=== PATIENT | female | born 1980 | race Caucasian/White ===

== ENCOUNTER → 2020-08-02 13:01 | Outpatient (BNVA) | payer OTHER, SELFPAY | PROVIDERS: Family Provider Family Medicine; PCP Family Medicine; Visit Provider Specialist | DX: G62.9 Polyneuropathy, unspecified (principal); R23.2 Flushing; G43.109 Migraine with aura, not intractable, without status migrainosus; Z87.891 Personal history of nicotine dependence | CPT/HCPCS: 99212 ==

== ENCOUNTER 2020-12-06 17:06 | Outpatient (CLI) | payer OTHER, SELFPAY ==
--- NOTE | 2020-12-06 | MR_ITS ---
WS: [id number] MRI CERVICAL SPINE NONCONTRAST HISTORY: NECK PAIN COMPARISON: 05/08/2018 Technique: Multiplanar, multisequence noncontrast imaging of the cervical spine. Normal posterior cervical alignment. Mild disc space narrowing and bulging at several levels. Again noted is the thin linear increased signal on the T2 sequences in the cervical cord at C5-C7 con sistent with a small syrinx which has not significantly changed or progressed. Craniocervical junction, C1 and C2 relationship, odontoid process and soft tissues are normal. C2-C3: Mild osteophytosis. Very shallow central disc protrusion without cord contact. C3-C4: Mild disc bulging. Moderate RIGHT foraminal stenosis due to disc osteophyte. Similar to the pr ior study. Displacement of the nerve root posteriorly. No stenosis centrally or on the LEFT. C4-C5: Mild annular disc bulging slightly asymmetric to the RIGHT. Very shallow central disc protrusi on without cord contact. Mild osteophytic ridging with mild RIGHT foraminal stenosis due to disc oste ophyte disease. Similar to the prior study. C5-C6: Mild osteophytic ridging with a moderate-sized central disc protrusion contacting the ventral cord. There is associated annular fissure. No significant foraminal stenosis. C6-C7: Tiny central disc protrusion. C7-T1: Tiny central disc protrusion. Near contact on the cord. Paraspinal soft tissue are normal. MR/MR cervical spin wo con* [id number] IMPRESSION: 1. No significant progression of degenerative disc disease and osteophytosis s laura 05/08/2018. 2. Moderate size central disc protrusion at C5-6 with mild contact on the vent ral cord and associated annular fissure. 3. Moderate RIGHT foraminal stenosis due to disc osteophyte at C3-4 is similar to the prior study. 4. Mild RIGHT foraminal stenosis at C4-5. 5. Small central cord syrinx is stable.
== END 2020-12-06 17:07 | disposition home or self-care (01) ==
PROVIDERS: PCP Family Medicine; Visit Provider Family Medicine
DX: M54.12 Radiculopathy, cervical region (principal); M48.02 Spinal stenosis, cervical region; M25.78 Osteophyte, vertebrae; M50.222 Other cervical disc displacement at C5-C6 level
CPT/HCPCS: 72141

== ENCOUNTER → 2020-12-14 08:10 | Outpatient (BNVA) | payer OTHER, SELFPAY | PROVIDERS: PCP Family Medicine; Referring Provider Family Medicine; Visit Provider Orthopaedic Surgery | DX: M48.02 Spinal stenosis, cervical region (principal) | CPT/HCPCS: 72050 ==

== ENCOUNTER → 2020-12-29 09:09 | Outpatient (BNVA) | payer OTHER, SELFPAY | PROVIDERS: PCP Family Medicine; Referring Provider Orthopaedic Surgery; Visit Provider Anesthesiology Pain Medicine | DX: M47.22 Other spondylosis with radiculopathy, cervical region (principal); M47.812 Spondylosis without myelopathy or radiculopathy, cervical region; M54.9 Dorsalgia, unspecified | CPT/HCPCS: 99205 ==

== ENCOUNTER → 2021-01-05 08:39 | Outpatient (BNVA) | payer OTHER, SELFPAY | PROVIDERS: PCP Family Medicine; Visit Provider Anesthesiology Pain Medicine | DX: M79.18 Myalgia, other site (principal); M47.22 Other spondylosis with radiculopathy, cervical region; M47.812 Spondylosis without myelopathy or radiculopathy, cervical region; Z79.891 Long term (current) use of opiate analgesic | CPT/HCPCS: 20553; 99214; J1030; J3490 ==

== ENCOUNTER → 2021-01-25 13:19 | Outpatient (BNVA) | payer OTHER, SELFPAY | PROVIDERS: PCP Family Medicine; Visit Provider Specialist | DX: M47.812 Spondylosis without myelopathy or radiculopathy, cervical region (principal); G43.109 Migraine with aura, not intractable, without status migrainosus; Z87.891 Personal history of nicotine dependence | CPT/HCPCS: 99213 ==

== ENCOUNTER 2021-02-02 10:21 | Outpatient (RCR) | payer OTHER, SELFPAY | END 2021-02-05 23:59 | disposition home or self-care (01) | LOC: SPT 10:21 | PROVIDERS: PCP Family Medicine; Referring Provider Orthopaedic Surgery; Visit Provider Orthopaedic Surgery | DX: M47.892 Other spondylosis, cervical region (principal) | CPT/HCPCS: 97110; 97162 ==

== ENCOUNTER 2021-02-06 06:00 | Outpatient (RCR) | payer OTHER, SELFPAY | END 2021-03-07 23:59 | disposition home or self-care (01) | LOC: SPT 06:00 | PROVIDERS: PCP Family Medicine; Referring Provider Orthopaedic Surgery; Visit Provider Orthopaedic Surgery | DX: M47.892 Other spondylosis, cervical region (principal) | CPT/HCPCS: 97110 ==

== ENCOUNTER 2021-03-08 06:00 | Outpatient (RCR) | payer OTHER, SELFPAY | END 2021-04-07 23:59 | disposition home or self-care (01) | LOC: SPT 06:00 | PROVIDERS: PCP Family Medicine; Referring Provider Orthopaedic Surgery; Visit Provider Orthopaedic Surgery | DX: M47.892 Other spondylosis, cervical region (principal) | CPT/HCPCS: 97110 ==

== ENCOUNTER → 2021-04-23 14:21 | Outpatient (BNVA) | payer OTHER, SELFPAY | PROVIDERS: PCP Family Medicine; Visit Provider Specialist | DX: G43.109 Migraine with aura, not intractable, without status migrainosus (principal); Z87.891 Personal history of nicotine dependence | CPT/HCPCS: 99212 ==

== ENCOUNTER → 2022-01-31 12:22 | Outpatient (BNVA) | payer MEDICAID, SELFPAY | PROVIDERS: PCP Family Medicine; Visit Provider Clinical Nurse Specialist Adult Health | DX: R07.9 Chest pain, unspecified (principal) | CPT/HCPCS: 84439; 84443; 84481; 84484 ==

== ENCOUNTER 2022-05-22 07:59 | Emergency (ER) | payer BC, MEDICAID, SELFPAY ==
[2022-05-22 08:03] VITALS: BP 164/109; PULSE 84; RESP 16; TEMP 36.9; O2SAT 99; BMI 27.5
--- NOTE | 2022-05-22 08:08 | ECG_ITS ---
[facility] Test Date: 2022-05-22 Pat Name: Inés Cruz Department: Room: Gender: Female Customer Order Clerk: : 1980 Requested By: Johny Brambila Order Number: [id number] Summer MD: Dickson Alvarez M.D. Measurements Intervals [place] Rate: 82 P: 43 IA: 149 QRS: 17 QRSD: 84 T: 32 QT: 362 QTc: 425 Interpretive Statements SINUS RHYTHM No previous ECG available for comparison Electronically Signed On 05-23-2022 10:36:45 CDT by Dickson Alvarez M.D. [id number] f
[2022-05-22 08:25] VITALS: BP 162/111; BP 172/100; BP 172/101; PULSE 81; PULSE 88; PULSE 90
[2022-05-22 08:30] VITALS: BP 172/100; PULSE 75; RESP 13; O2SAT 98
--- NOTE | 2022-05-22 08:30 | W.ED.DIZZY ---
HPI - Dizziness General: Chief Complaint: Dizziness Stated Complaint: dizzy, heart racing Time Seen by Provider: 05/22/22 08:01 Source: patient Mode of arrival: ambulatory Limitations: no limitations History of Present Illness: HPI Narrative: 42-year-old female presents emergency room complaining of elevated blood pressure and dizziness some palpitations intermittently feels lightheaded and fatigued's been going over the last few days. States she called her doctor was unable to get and advised her to come to the emergency room. She is not currently on any medications she has not had any chest pain no shortness of breath or diaphoresis associated with this no history of any arrhythmias. MD elicited complaint: dizziness and lightheadedness Severity: mild Exacerbating factors: nothing Relieving factors: nothing Associated symptoms: Reports palpitations; Denies change in hearing, chest pain, chills, cough, diaphoresis, ear discharge, ear pressure, fevers/chills, headache(s), malaise, nausea, nasal congestion, rash, short of breath, syncope, tinnitus, vomiting or weakness Associated neuro symptoms: Deny confusion, difficulty speaking, dysphagia, diplopia, extremity weakness, facial numbness, facial weakness, gait changes, numbness in extremities or visual changes Review of Systems Const: Denies: fever(s), chills, fatigue, malaise or diaphoresis ENMT: Denies: throat pain, ear discharge, change in hearing, tinnitus or nasal congestion Card: Reports: palpitations; Denies: chest pain or syncope Resp: Denies: dyspnea, productive cough or non-productive cough GI: Denies: abdominal pain, nausea, vomiting or dysphagia : Denies: flank pain, difficulty voiding, dysuria, urinary frequency or urinary urgency Skin/Breast: Denies: rash or pruritus Neuro: Denies: headache(s), numbness in extremities or confusion PFSH ED PFSH: Family History Other Diabetes Hypertension Social History Smoking and tobacco status: former smoker Alcohol intake: never History of recent travel: No Physical Exam Const: GENERAL APPEARANCE: cooperative and comfortable ORIENTATION/CONSCIOUSNESS: Yes awake, Yes oriented to person, Yes oriented to place and Yes oriented to time HENMT: COMMON NORMALS: normocephalic, atraumatic, hearing grossly normal bilaterally, external ears normal, EAC's normal, TM's normal bilaterally, Normal nasal mucous membranes and turbinates present, moist oral mucous membranes and oropharynx normal HEAD & SCALP: normocephalic and atraumatic NOSE: Normal nasal mucous membranes and turbinates present EXTERNAL EAR: Yes external ears normal EXTERNAL AUDITORY CANAL: EAC's normal TYMPANIC MEMBRANE: TM's normal bilaterally Eye: COMMON NORMALS: Equal, round and reactive pupils present, EOMs intact bilaterally, conjunctivae normal and no scleral icterus CONJUNCTIVA: Yes conjunctivae normal PUPIL: Yes Equal, round and reactive pupils present Resp: COMMON NORMALS: normal respiratory effort, No retractions, No use of accessory muscles and clear to auscultation bilaterally AUSCULTATION: clear to auscultation bilaterally Cardio: COMMON NORMALS: regular rate, regular rhythm and No murmurs present (Cardio) RATE: regular rate RHYTHM: regular rhythm GI: COMMON NORMALS: Soft to palpation and No hepatosplenomegaly present AUSCULTATION: Yes normoactive bowel sounds PALPATION: Yes Soft to palpation, No Tenderness to palpation present (GI), No Guarding due to palpation present (GI) and Yes No hepatosplenomegaly present Extremity: COMMON NORMALS: normal to inspection, capillary refill normal, no clubbing, cyanosis or edema, no calf tenderness and no pedal edema Neuro: SENSORIUM/ORIENTATION: Yes oriented to person, Yes oriented to place and Yes oriented to time Skin: COMMON NORMALS: no rashes or lesions noted GENERAL SKIN EXAM: no rashes or lesions noted Course Vital Signs: Vital signs: Vital Signs Temperature 98.4 F 05/22/22 08:03 Pulse Rate 80 05/22/22 09:46 Respiratory Rate 18 05/22/22 09:46 Blood Pressure 128/90 05/22/22 09:46 Pulse Oximetry 98 05/22/22 09:46 Oxygen Delivery Or thod 05/22/22 08:30 MDM - Dizziness Medical Decision Making DC hydrochlorothiazide start Toprol-XL 0.5 nightly. She is given 25 short acting here and pretty significant reaction to it and had lowering of her heart rate into the 60s. Follow-up with primary care doc within the next week. Medical Records I reviewed the patient's medical records. Lab Data I reviewed the patient's lab results. : 05/22/22 08:20 05/22/22 08:20 Laboratory Results WBC 8.5 10^3/uL (4.0-10.0) 05/22/22 08:20 RBC 5.01 10^6/uL (4.1-5.3) 05/22/22 08:20 Hgb 15.3 g/dL (11.5-15.3) 05/22/22 08:20 Hct 46.2 % (37.0-47.0) 05/22/22 08:20 MCV 92.2 fl (81-99) 05/22/22 08:20 MCH 30.5 pg (28.0-34.0) 05/22/22 08:20 MCHC 33.1 g/dL (30.0-36.0) 05/22/22 08:20 RDW 12.7 % (12.1-15.1) 05/22/22 08:20 Plt Count 304 10^3/cmm (130-400) 05/22/22 08:20 MPV 10.0 fL (7.4-10.4) 05/22/22 08:20 Neut % (Auto) 66.0 % 05/22/22 08:20 Lymph % (Auto) 26.1 % 05/22/22 08:20 [place] % (Auto) 4.4 % 05/22/22 08:20 Eos % (Auto) 2.8 % 05/22/22 08:20 Baso % (Auto) 0.5 % 05/22/22 08:20 Neut # (Auto) 5.60 10^3/uL (1.8-7.7) 05/22/22 08:20 Lymph # (Auto) 2.2 10^3/uL (0.8-4.8) 05/22/22 08:20 [place] # (Auto) 0.4 10^3/uL (0.2-0.9) 05/22/22 08:20 Eos # (Auto) 0.2 10^3/uL (0.0-0.8) 05/22/22 08:20 Baso # (Auto) 0.0 10^3/uL (0.0-0.1) 05/22/22 08:20 Nucleated RBC % (auto) 0 % 05/22/22 08:20 Nucleated RBCs # 0.0 /100WBC 05/22/22 08:20 Sodium 138 mmol/L (136-145) 05/22/22 08:20 Potassium 3.5 mmol/L (3.5-5.1) 05/22/22 08:20 Chloride 101 mmol/L (98-107) 05/22/22 08:20 Carbon Dioxide 23 mmol/L (22-29) 05/22/22 08:20 Anion Gap 17.5 (5-19) 05/22/22 08:20 BUN 13 mg/dL (6-20) 05/22/22 08:20 Creatinine 0.7 mg/dL (0.5-0.9) 05/22/22 08:20 GFR Calculation 91.8 mL/min (90-130) 05/22/22 08:20 Glucose 108 mg/dL (65-115) 05/22/22 08:20 Calculated Osmolality 287 mOsm/kg (285-295) 05/22/22 08:20 Calcium 10.1 mg/dL (8.5-10.5) 05/22/22 08:20 Discharge Plan Discharge Patient Disposition: Home Clinical Impression: HTN (hypertension), Heart palpitations Condition: Stable Prescriptions: New Toprol XL 25 mg tablet extended release 24 hr 12.5 mg PO DAILY Qty: 15 0RF No Action lisinopril 20 mg tablet 20 mg PO QAM Aspir-81 81 mg Tablet,Delayed Release (Dr/Ec) 81 mg PO QAM Zinc Magnesium Aspartate 10-150-3.83 mg Capsule 1 cap PO QAM hydrochlorothiazide 12.5 mg tablet 12.5 mg PO QAM Discharge Orders: Discharge ED (Routine); Ordered 05/22/22 Ordered By: Johny Bobby Referrals: Samson Rios DO [Primary Care Provider] - Patient Instructions: Opioid Safety, Pain Management Activity Restrictions/Additional Instructions: Follow-up with your primary care doctor within the next week. Coding Level of Care Code ED Liquor Tester for Karolina Fwd Exam Comprehensive
[2022-05-22 08:31] LABS: Basophils % 0.5 %; Eosinophils # 0.2 10^3/uL (0.0-0.8); Eosinophils % 2.8 %; Hematocrit 46.2 % (37.0-47.0); Hemoglobin 15.3 g/dL (11.5-15.3); Lymphocytes # 2.2 10^3/uL (0.8-4.8); Lymphocytes % 26.1 %; Mean Corpuscular HGB Conc 33.1 g/dL (30.0-36.0); Mean Corpuscular Hemoglobin 30.5 pg (28.0-34.0); Mean Corpuscular Volume 92.2 fl (81-99); Monocytes # 0.4 10^3/uL (0.2-0.9); Monocytes % 4.4 %; Nucleated Red Blood Cells % 0 %; Platelet Count 304 10^3/cmm (130-400); Red Blood Count 5.01 10^6/uL (4.1-5.3); Red Cell Distribution Width 12.7 % (12.1-15.1); White Blood Count 8.5 10^3/uL (4.0-10.0)
[2022-05-22] MEDS: metoprolol tartrate 25 mg Tablet PO (08:35)
--- NOTE | 2022-05-22 08:41 | PC.PHAR ---
pt states she takes care of her own medications-rx filled 02/15/22 90d/s for lisinopril 20mg daily and lisinopril 30mg daily filled 03/22/22 90d/s pt states takes the 20mg daily-
[2022-05-22 08:56] LABS: Anion Gap 17.5 (5-19); Blood Urea Nitrogen 13 mg/dL (6-20); Calcium 10.1 mg/dL (8.5-10.5); Carbon Dioxide 23 mmol/L (22-29); Chloride 101 mmol/L (98-107); Glomerular Filtration Rate 91.8 mL/min (90-130); Glucose 108 mg/dL (65-115); Osmolality Calculated 287 mOsm/kg (285-295); Potassium 3.5 mmol/L (3.5-5.1); Sodium 138 mmol/L (136-145)
[2022-05-22 09:46] VITALS: BP 128/90; PULSE 80; RESP 18; O2SAT 98
== END 2022-05-22 09:47 | disposition home or self-care (01) ==
PROVIDERS: Emergency Provider Family Medicine; PCP Family Medicine
DX: I10 Essential (primary) hypertension (principal); R00.2 Palpitations; Z79.82 Long term (current) use of aspirin; Z87.891 Personal history of nicotine dependence
CPT/HCPCS: 80048; 85025; 93005; 99284

== ENCOUNTER → 2022-08-19 10:11 | Outpatient (BNVA) | payer BC, MEDICAID, SELFPAY | PROVIDERS: PCP Family Medicine; Visit Provider Clinical Nurse Specialist Adult Health | DX: B34.9 Viral infection, unspecified (principal); J10.1 Influenza due to other identified influenza virus with other respiratory manifestations | CPT/HCPCS: 87400; 87426 ==

== ENCOUNTER 2022-09-12 21:21 | Emergency (ER) | payer BC, MEDICAID, SELFPAY ==
[2022-09-12 21:26] VITALS: BP 168/115; PULSE 67; RESP 16; TEMP 37.1; O2SAT 100
--- NOTE | 2022-09-12 21:49 | CTR_ITS ---
PROCEDURE INFORMATION: Exam: CT Abdomen And Pelvis With Contrast Exam date and time: 09/12/2022 10:18 PM Age: 42 years old Clinical indication: Abdominal pain; Localized; Left lower quadrant (llq); Prior surgery; Surgery type: Gb. Appy. Bowel resection. Csection. Patient HX: C/O severe llq pain. History of diverticulitis. ; Additional info: Abd pain TECHNIQUE: Imaging protocol: Computed tomography of the abdomen and pelvis with contrast. Radiation optimization: All CT scans at this facility use at least one of these dose optimization techniques: automated exposure control; mA and/or kV adjustment per patient size (includes targeted exams where dose is matched to clinical indication); or iterative reconstruction. Contrast material: OMNI 350; Contrast volume: 100 ml; Contrast route: INTRAVENOUS (IV); COMPARISON: CT abdomen pelvis w con* [id number] 04/27/2019 9:39 AM RADIATION DOSE METRICS: Total DLP (mGy-cm): 443.69 FINDINGS: Liver: Normal. No mass. Gallbladder and bile ducts: The gallbladder is surgically absent. Pancreas: Normal. No ductal dilation. Spleen: Normal. No splenomegaly. Adrenal glands: Normal. No mass. Kidneys and ureters: 2 mm nonobstructing right intrarenal calculus. Kidneys are otherwise normal. Stomach and bowel: Numerous diverticula in the sigmoid colon with accompanying mild wall thickening. However no pericolonic edema or fluid. No bowel obstruction or ileus. However there is moderate fluid within the postoperative right colon. Small bowel is normal. The stomach is moderately distended with food and gas. . Appendix: No evidence of appendicitis. Intraperitoneal space: Unremarkable. No free air. No significant fluid collection. Vasculature: Unremarkable. No abdominal aortic aneurysm. Lymph nodes: Unremarkable. No enlarged lymph nodes. Urinary bladder: The urinary bladder is distended up to 12 cm but without wall thickening or stones. Reproductive: Follicles are noted in the right ovary. The left ovary is not as clearly seen. Bones/joints: Unremarkable. No acute fracture. Soft tissues: 3.4 cm laxity of the abdominal wall at the umbilicus. No bowel entrapment. CT/CT abdomen pelvis w con* [id number] IMPRESSION: 1. Sigmoid colon wall thickening with accompanying diverticula. However no surrounding inflammation. The pattern suggests chronic diverticulitis 2. Chronic postoperative right colon. 3. Other chronic and incidental findings as described
--- NOTE | 2022-09-12 21:50 | W.ED.ABDPA2 ---
HPI - Abdominal Pain General: Chief Complaint: Abdominal Pain Stated Complaint: ABD Pain Time Seen by Provider: 09/12/22 21:23 Source: patient Mode of arrival: ambulatory Limitations: no limitations History of Present Illness: 42-year-old female states she is history of diverticulitis in the past where she had a colectomy in 2014 states been having abdominal pain over the last 2 days with a getting much worse in the last 2 hours states is in the left lower quadrant she denies any fever she does have nausea denies any vomiting she denies any worsening improving factors. Associated Symptoms: Reports nausea; Denies chills, dysuria and fever(s) Review of Systems Const: Denies: fever(s), chills, body aches or change in appetite Eyes: Denies: blurry vision or eye discomfort ENMT: Denies: throat pain or dental pain Card: Denies: chest pain Resp: Denies: dyspnea GI: Reports: abdominal pain and nausea : Denies: dysuria Musc: Denies: neck pain or back pain Skin/Breast: Denies: rash Neuro: Denies: headache(s) Psych: Denies: depression Oswald/Lymph: Denies: easy bruising All/Imm: Denies: urticaria PFSH ED PFSH: Medical History Atypical migraine Hypertension Surgical History History of appendectomy History of back surgery x2 History of delivery History of cholecystectomy Family History Other Diabetes Hypertension Social History Smoking and tobacco status: former smoker Alcohol intake: never History of recent travel: No Physical Exam Const: COMMON NORMALS: no acute distress, patient oriented x3 and healthy appearing HENMT: COMMON NORMALS: normocephalic and atraumatic HEAD & SCALP: normocephalic and atraumatic Eye: COMMON NORMALS: Equal, round and reactive pupils present and EOMs intact bilaterally PUPIL: Yes Equal, round and reactive pupils present Neck/C-Spine: COMMON NORMALS: full ROM and supple Chest: COMMONS NORMALS: normal inspection of the chest and normal palpation of entire chest wall Resp: COMMON NORMALS: normal respiratory effort, No retractions, No use of accessory muscles and clear to auscultation bilaterally AUSCULTATION: clear to auscultation bilaterally Cardio: COMMON NORMALS: regular rate, regular rhythm and No murmurs present (Cardio) RATE: regular rate RHYTHM: regular rhythm GI: COMMON NORMALS: Normal to inspection, nondistended, normoactive bowel sounds present, Soft to palpation and no masses PALPATION: Yes Soft to palpation and Yes Tenderness to palpation present (GI) Details: LLQ Extremity: COMMON NORMALS: normal to inspection and full ROM Neuro: COMMON NORMALS: patient oriented x3, moves all extremities and no focal motor deficits Psych: COMMON NORMALS: mental status grossly normal, Normal thought process present and cooperative THOUGHT PROCESS: Normal thought process present Skin: COMMON NORMALS: no rashes or lesions noted and no wounds GENERAL SKIN EXAM: no rashes or lesions noted Course Vital Signs: Vital signs: Vital Signs Temperature 98.8 F 09/12/22 21:26 Pulse Rate 70 09/12/22 22:11 Respiratory Rate 18 09/12/22 22:58 Blood Pressure 158/91 09/12/22 22:11 Pulse Oximetry 99 09/12/22 22:11 Oxygen Delivery Me thod 09/12/22 22:11 MDM - Abdominal Pain Medical Decision Making Patient presents here with abdominal pain CT shows her chronic diverticulitis her white count is normal due to her pain we will start her on Augmentin pain meds get her follow-up with Dr. Goetz. Lab Data 09/12/22 22:02 09/12/22 22:02 Labs/Radiology: Radiology Impressions Abdomen/Pelvis CT 09/12/22 21:49 IMPRESSION: 1. Sigmoid colon wall thickening with accompanying diverticula. However no surrounding inflammation. The pattern suggests chronic diverticulitis 2. Chronic postoperative right colon. 3. Other chronic and incidental findings as described Laboratory Results WBC 8.0 10^3/uL (4.0-10.0) 09/12/22 22:02 RBC 4.97 10^6/uL (4.1-5.3) 09/12/22 22:02 Hgb 15.4 g/dL (11.5-15.3) H 09/12/22 22:02 Hct 46.3 % (37.0-47.0) 09/12/22 22:02 MCV 93.2 fl (81-99) 09/12/22 22:02 MCH 31.0 pg (28.0-34.0) 09/12/22 22:02 MCHC 33.3 g/dL (30.0-36.0) 09/12/22 22:02 RDW 13.2 % (12.1-15.1) 09/12/22 22:02 Plt Count 296 10^3/cmm (130-400) 09/12/22 22:02 MPV 10.1 fL (7.4-10.4) 09/12/22 22:02 Neut % (Auto) 60.8 % 09/12/22 22:02 Lymph % (Auto) 30.6 % 09/12/22 22: [place] % (Auto) 6.5 % 09/12/22 22:02 Eos % (Auto) 1.3 % 09/12/22 22:02 Baso % (Auto) 0.5 % 09/12/22 22:02 Neut # (Auto) 4.85 10^3/uL (1.8-7.7) 09/12/22 22:02 Lymph # (Auto) 2.4 10^3/uL (0.8-4.8) 09/12/22 22:02 [place] # (Auto) 0.5 10^3/uL (0.2-0.9) 09/12/22 22:02 Eos # (Auto) 0.1 10^3/uL (0.0-0.8) 09/12/22 22:02 Baso # (Auto) 0.0 10^3/uL (0.0-0.1) 09/12/22 22:02 Nucleated RBC % (auto) 0 % 09/12/22 22: Nucleated RBCs # 0.0 /100WBC 09/12/22 22:02 Sodium 138 mmol/L (136-145) 09/12/22 22:02 Potassium 4.2 mmol/L (3.5-5.1) 09/12/22 22:02 Chloride 103 mmol/L (98-107) 09/12/22 22:02 Carbon Dioxide 25 mmol/L (22-29) 09/12/22 22:02 Anion Gap 14.2 (5-19) 09/12/22 22:02 BUN 12 mg/dL (6-20) 09/12/22 22:02 Creatinine 0.5 mg/dL (0.5-0.9) 09/12/22 22:02 GFR Calculation 135.3 mL/min (90-130) H 09/12/22 22:02 Glucose 80 mg/dL (65-115) 09/12/22 22:02 Calculated Osmolality 285 mOsm/kg (285-295) 09/12/22 22:02 Calcium 9.8 mg/dL (8.5-10.5) 09/12/22 22:02 Total Bilirubin 0.2 mg/dL (0.15-1.2) 09/12/22 22:02 AST 18 U/L (0-32) 09/12/22 22:02 ALT 15 U/L (0-33) 09/12/22 22:02 Alkaline Phosphatase 61 U/L (35-105) 09/12/22 22:02 Total Protein 8.1 g/dL (6.6-8.7) 09/12/22 22:02 Albumin 5.2 g/dL (3.5-5.2) 09/12/22 22:02 Globulin 2.9 g/dL (1.3-4.6) 09/12/22 22:02 Lipase 37 U/L (13-60) 09/12/22 22:02 HCG, Qual Negative (Negative) 09/12/22 22:02 Urine Color Colorless (Yellow) 09/12/22 22:40 Urine Appearance Clear (CLEAR) 09/12/22 22:40 Urine pH 6.5 (5-7) 09/12/22 22:40 Ur Specific [place] 1.015 (1.005-1.030) 09/12/22 22:40 Urine Protein Neg (Negative) 09/12/22 22:40 Urine Glucose (UA) Norm (Normal) 09/12/22 22:40 Urine Ketones Negative (Negative) 09/12/22 22:40 Urine Blood Neg (Negative) 09/12/22 22:40 Urine Nitrate Negative (Negative) 09/12/22 22:40 Urine Bilirubin Neg (Negative) 09/12/22 22:40 Urine Urobilinogen Norm mg/dL (Negative) 09/12/22 22:40 Ur Leukocyte Esterase Negative (Negative) 09/12/22 22:40 Discharge Plan Discharge Patient Disposition: Home Clinical Impression: Diverticulitis, Abdominal pain Condition: Stable Prescriptions: New hydrocodone-acetaminophen 5-325 mg tablet 1 tab PO Q6H PRN (Reason: pain) Qty: 14 0RF ondansetron 4 mg tablet,disintegrating 4 mg PO Q6H PRN (Reason: nausea and vomiting) Qty: 14 0RF Augmentin 500-125 mg tablet 1 tab PO BID Qty: 14 0RF No Action Toprol XL 25 mg tablet extended release 24 hr 25 mg PO DAILY Qty: 90 1RF lisinopril 20 mg tablet 20 mg PO QAM Qty: 90 1RF Xofluza 40 mg tablet 40 mg PO ONCE Qty: 1 0RF Aspir-81 81 mg Tablet,Delayed Release (Dr/Ec) 81 mg PO QAM Zinc Magnesium Aspartate 10-150-3.83 mg Capsule 1 cap PO QAM Discharge Orders: Discharge ED (Routine); Ordered 09/12/22 Ordered By: Lana Orourke Referrals: Nhan Goetz MD [Physician] - 1-3 days Samson Rios DO [Primary Care Provider] - Discharge Diet: Advance as tolerated Discharge Activity: Resume usual activity Patient Instructions: Abdominal Pain (ED), Opioid Safety Coding Level of Care Code ED Devops Developer for Chg Fwd Exam Comprehensive
[2022-09-12 22:08] VITALS: RESP 16
[2022-09-12] MEDS: ondansetron 2 mg/ML SDV 2 mL 4 MG IVP (22:08)
[2022-09-12] MEDS: sodium chloride 0.9% 1,000 ML 999 ML IV (22:08)
[2022-09-12] MEDS: HYDROmorphone 1 mg/mL INJ 1 mL IVP ×2 (22:08→22:58)
[2022-09-12 22:10] LABS: Basophils % 0.5 %; Eosinophils # 0.1 10^3/uL (0.0-0.8); Eosinophils % 1.3 %; Hematocrit 46.3 % (37.0-47.0); Hemoglobin 15.4 g/dL (11.5-15.3); Lymphocytes # 2.4 10^3/uL (0.8-4.8); Lymphocytes % 30.6 %; Mean Corpuscular HGB Conc 33.3 g/dL (30.0-36.0); Mean Corpuscular Volume 93.2 fl (81-99); Mean Platelet Volume 10.1 fL (7.4-10.4); Monocytes # 0.5 10^3/uL (0.2-0.9); Monocytes % 6.5 %; Neutrophils # 4.85 10^3/uL (1.8-7.7); Neutrophils % 60.8 %; Nucleated Red Blood Cells % 0 %; Platelet Count 296 10^3/cmm (130-400); Red Blood Count 4.97 10^6/uL (4.1-5.3); Red Cell Distribution Width 13.2 % (12.1-15.1)
[2022-09-12 22:11] VITALS: BP 158/91; PULSE 70; O2SAT 99
[2022-09-12 22:30] VITALS: PULSE 66; O2SAT 99
[2022-09-12] MEDS: iohexol 350 mg/mL 500 mL Btl (per mL) IV (22:30)
[2022-09-12 22:41] LABS: Alanine Aminotransferase 15 U/L (0-33); Albumin Level 5.2 g/dL (3.5-5.2); Alkaline Phosphatase 61 U/L (35-105); Anion Gap 14.2 (5-19); Aspartate Amino Transferase 18 U/L (0-32); Blood Urea Nitrogen 12 mg/dL (6-20); Calcium 9.8 mg/dL (8.5-10.5); Carbon Dioxide 25 mmol/L (22-29); Chloride 103 mmol/L (98-107); Creatinine Clr Calc Pharmacy 120.2658; Globulin 2.9 g/dL (1.3-4.6); Glomerular Filtration Rate 135.3 mL/min (90-130); Glucose 80 mg/dL (65-115); Lipase 37 U/L (13-60); Osmolality Calculated 285 mOsm/kg (285-295); Potassium 4.2 mmol/L (3.5-5.1); Sodium 138 mmol/L (136-145); Total Bilirubin 0.2 mg/dL (0.15-1.2); Total Protein 8.1 g/dL (6.6-8.7)
[2022-09-12 22:42] LABS: Add Urine Microscopic? NO; Charge for UA Resulting for Rev
[2022-09-12 22:46] LABS: HCG, Serum Qual Negative (Negative)
[2022-09-12 22:55] LABS: Specific Gravity, Urine 1.015 (1.005-1.030); Urine Appearance Clear (CLEAR); Urine Color Colorless (Yellow); pH Urine 6.5 (5-7)
[2022-09-12 22:56] LABS: Bilirubin Urine Neg (Negative); Blood Urine Neg (Negative); Glucose Urine UA Norm (Normal); Ketones Urine Negative (Negative); Leukocyte Esterase Urine Negative (Negative); Nitrate Urine Negative (Negative); Protein Urine Neg (Negative); Urobilinogen Urine Norm (Negative)
[2022-09-12 22:58] VITALS: RESP 18
[2022-09-12 23:30] VITALS: PULSE 64; O2SAT 99
[2022-09-13] MEDS: HYDROcodone-acetaminophen 5-325 mg Tablet 1 TAB PO (00:02)
== END 2022-09-13 00:12 | disposition home or self-care (01) ==
PROVIDERS: Emergency Provider Emergency Medicine; PCP Family Medicine
DX: K57.92 Diverticulitis of intestine, part unspecified, without perforation or abscess without bleeding (principal); Z79.82 Long term (current) use of aspirin; I10 Essential (primary) hypertension; Z87.891 Personal history of nicotine dependence
CPT/HCPCS: 74177; 80053; 81003; 83690; 84703; 85025; 96361; 96374; 96375; 96376; 99285; J1170; J2405; J7030; Q9967

== ENCOUNTER 2023-02-11 08:59 | Emergency (ER) | payer BC, MEDICAID, SELFPAY ==
[2023-02-11 09:00] VITALS: BP 190/107; PULSE 90; RESP 14; TEMP 36.6; O2SAT 100; BMI 26.9
--- NOTE | 2023-02-11 09:08 | XRR_ITS ---
PROCEDURE INFORMATION: Exam: XR Chest Exam date and time: 02/11/2023 9:13 AM Age: 42 years old Clinical indication: Condition or disease; Other: Hypertension TECHNIQUE: Imaging protocol: Radiologic exam of the chest. Views: 1 view. COMPARISON: CT abdomen pelvis w con* [id number] 09/12/2022 10:18 PM FINDINGS: Lungs: Unremarkable. No consolidation. Pleural spaces: Unremarkable. No pleural effusion. No pneumothorax. Heart/Mediastinum: Unremarkable. No cardiomegaly. Bones/joints: Unremarkable for age. XR/XR chest 1V portable [id number] IMPRESSION: Negative chest exam.
--- NOTE | 2023-02-11 09:12 | CT_ITS ---
WS: [id number] CT HEAD TECHNIQUE: Noncontrast CT of the head obtained from the skullbase to the vertex. CLINICAL INFORMATION: HTN, WILKINSON, nausea/vomiting COMPARISON: MRI 2018 DLP: 976.[address] scans at [facility] use at least one of these dose optimization techniques: automated e xposure control; mA and/or kV adjustment per patient size (includes targeted exams where dose is matc hed to clinical indication); or iterative reconstruction. FINDINGS: No evidence of intracranial hemorrhage or mass effect. Ventricular system and basal cisterns are ryan nt. No extra-axial fluid collections. No evidence of mass or mass effect. Normal tomlin-white different iation. Paranasal sinuses and mastoid air cells are well aerated. .Normal visualized soft tissues. CT/CT head wo con* [id number] IMPRESSION: 1. No evidence of intracranial hemorrhage or mass effect. 2. No acute intracranial findings.
--- NOTE | 2023-02-11 09:16 | ED_ITS ---
HPI - General Adult General: Chief complaint: Nausea/Vomiting/Diarrhea Stated complaint: N/V Time Seen by Provider: 02/11/23 09:00 Source: patient and EMS Mode of arrival: EMS Limitations: no limitations History of Present Illness: Patient is a nice 42-year-old female presents to ED today via EMS. Patient states she woke up this morning feeling normal. She took her blood pressure medications (losartan and metoprolol) like normal. Patient states she was driving to work when she began feeling nauseous. She started feeling tremulous and feeling like her face was flushed thus called an ambulance. EMS states upon arrival blood pressure was elevated with systolics in the 190s. They gave patient Zofran in route for the nausea. Patient states in route to the emergency department she began developing a headache. No visual changes. She does not have any neurologic deficits or complaints upon arrival here. She states she has chronic hypertension and blood pressure in the mornings prior to taking her medications are often in the 170s-180s. Onset (ago): hour(s) Relieving factors: none Exacerbating factors: none Associated symptoms: Reports headache(s), nausea and vomiting; Deny chest pain, confusion, dyspnea, malaise, palpitations or syncope Treatments prior to arrival: other (took BP meds this morning; PO zofran given by EMS) Review of Systems Const: Denies: fever(s), chills, body aches, fatigue or malaise Eyes: Denies: change in vision, blurry vision, photophobia, floaters or seeing flashes Card: Denies: chest pain, palpitations, irregular heart rhythm, edema, swelling of feet/ankles, lightheadedness, syncope, pre-syncope, dyspnea on exertion, orthopnea, leg pain with exertion or acrocyanosis Resp: Denies: dyspnea GI: Reports: nausea and vomiting; Denies: abdominal pain Musc: Denies: neck pain, back pain, extremity pain or joint pain Neuro: Reports: headache(s); Denies: numbness in extremities, weakness in extremities, sensory changes, lack of coordination, dizziness, confusion, behavioral changes, Slurred speech present or seizure-like activity [facility] ED PFSH: Medical History Atypical migraine Hypertension Surgical History History of appendectomy History of back surgery x2 History of delivery History of cholecystectomy Family History Other Diabetes Hypertension Social History Smoking and tobacco status: former smoker Alcohol intake: never Substance/Drug Use: never Physical Exam Const: COMMON NORMALS: average body habitus, patient oriented x3, no limitations, healthy appearing, alert and well nourished GENERAL APPEARANCE: cooperative and anxious ORIENTATION/CONSCIOUSNESS: Yes awake, Yes oriented to person, Yes oriented to place and Yes oriented to time OTHER: appears anxious, tremulous, facial flushing HENMT: COMMON NORMALS: normocephalic and atraumatic HEAD & SCALP: normal to inspection, normocephalic and atraumatic Eye: GENERAL EYE: appearance normal, both eyes and all related structures Neck/C-Spine: COMMON NORMALS: full ROM, no lymphadenopathy, no meningeal signs and no JVD GENERAL: Yes normal visual inspection Chest: COMMONS NORMALS: normal inspection of the chest and normal palpation of entire chest wall Resp: COMMON NORMALS: normal respiratory effort and clear to auscultation bilaterally AUSCULTATION: clear to auscultation bilaterally Cardio: COMMON NORMALS: no JVD, regular rate and regular rhythm RATE: regular rate RHYTHM: regular rhythm GI: COMMON NORMALS: Normal to inspection, nondistended, normoactive bowel sounds present, Soft to palpation and non-tender PALPATION: Yes Soft to palpation Back/Pelvis: COMMON NORMALS: thoracic and lumbar spine normal to inspection, no thoracic nor lumbar tenderness and thoraco-lumbar ROM normal Extremity: COMMON NORMALS: normal to inspection GENERAL: Yes normal exam except as noted Neuro: EDGAR COMA SCALE: document GCS findings Edgar coma scale eye opening: Spontaneous Edgar coma scale verbal response: Orientated Edgar coma scale motor response: Obey commands [place] coma scale total score: 15 COMMON NORMALS: patient oriented x3, CN's II-XII intact bilaterally, moves all extremities, no focal motor deficits and no sensory deficits noted SENSORIUM/ORIENTATION: Yes alert, Yes oriented to person, Yes oriented to place and Yes oriented to time MENINGEAL SIGNS: Yes no meningeal signs SPEECH: speech normal MOTOR EXAM: 5/5 motor strength present throughout Skin: COMMON NORMALS: no rashes or lesions noted NARRATIVE SKIN EXAM: facial flushing GENERAL SKIN EXAM: no rashes or lesions noted Course Vital Signs: Vital signs: Vital Signs Temperature 97.8 F 02/11/23 09:00 Pulse Rate 79 02/11/23 12:16 Respiratory Rate 18 02/11/23 11:34 Blood Pressure 122/62 02/11/23 12:16 Pulse Oximetry 98 02/11/23 12:16 Oxygen Delivery Me thod Room Air 02/11/23 11:34 MDM - General Adult Medical Decision Making Patient responded very well to 10mg IV hydralazine and antiemetics. She was continued to be watched here for over an hour and continues to feel much improved. She feels comfortable going home at this time. Blood work is nonactionable. Baseline repeat troponins are normal. EKG showing no ischemic changes. CXR is normal. Head CT is negative. Return ED precautions given. Otherwise I would like her to follow-up with primary care by the end of the week for re-evaluation. Discussed how she can increase her metoprolol left blood pressures continually run high at home. Discussed keeping blood pressure log. Lab Data 02/11/23 09:25 02/11/23 09:25 Radiology Impressions Chest X-Ray 02/11/23 09:08 IMPRESSION: Negative chest exam. Head CT 02/11/23 09:12 IMPRESSION: 1. No evidence of intracranial hemorrhage or mass effect. 2. No acute intracranial findings. Laboratory Results WBC 8.2 10^3/uL (4.0-10.0) 02/11/23 09:25 RBC 4.86 10^6/uL (4.1-5.3) 02/11/23 09:25 Hgb 15.6 g/dL (11.5-15.3) H 02/11/23 09:25 Hct 46.5 % (37.0-47.0) 02/11/23 09:25 MCV 95.7 fl (81-99) 02/11/23 09:25 MCH 32.1 pg (28.0-34.0) 02/11/23 09:25 MCHC 33.5 g/dL (30.0-36.0) 02/11/23 09:25 RDW 12.9 % (12.1-15.1) 02/11/23 09:25 Plt Count 316 10^3/cmm (130-400) 02/11/23 09:25 MPV 10.0 fL (7.4-10.4) 02/11/23 09:25 Neut % (Auto) 66.9 % 02/11/23 09:25 Lymph % (Auto) 25.6 % 02/11/23 09:25 Cassia % (Auto) 5.0 % 02/11/23 09:25 Eos % (Auto) 1.6 % 02/11/23 09:25 Baso % (Auto) 0.4 % 02/11/23 09:25 Neut # (Auto) 5.52 10^3/uL (1.8-7.7) 02/11/23 09:25 Lymph # (Auto) 2.1 10^3/uL (0.8-4.8) 02/11/23 09:25 Cassia # (Auto) 0.4 10^3/uL (0.2-0.9) 02/11/23 09:25 Eos # (Auto) 0.1 10^3/uL (0.0-0.8) 02/11/23 09:25 Baso # (Auto) 0.0 10^3/uL (0.0-0.1) 02/11/23 09:25 Nucleated RBC % (auto) 0 % 02/11/23 09:25 Nucleated RBCs # 0.0 /100WBC 02/11/23 09:25 Sodium 143 mmol/L (136-145) 02/11/23 09:25 Potassium 3.4 mmol/L (3.5-5.1) L 02/11/23 09:25 Chloride 106 mmol/L (98-107) 02/11/23 09:25 Carbon Dioxide 21 mmol/L (22-29) L 02/11/23 09:25 Anion Gap 19.4 (5-19) H 02/11/23 09:25 BUN 6 mg/dL (6-20) 02/11/23 09:25 Creatinine 0.6 mg/dL (0.5-0.9) 02/11/23 09:25 GFR Calculation 109.6 mL/min (90-130) 02/11/23 09:25 Glucose 84 mg/dL (65-115) 02/11/23 09:25 Calculated Osmolality 293 mOsm/kg (285-295) 02/11/23 09:25 Calcium 9.5 mg/dL (8.5-10.5) 02/11/23 09:25 Total Bilirubin 0.3 mg/dL (0.15-1.2) 02/11/23 09:25 AST 20 U/L (0-32) 02/11/23 09:25 ALT 15 U/L (0-33) 02/11/23 09:25 Alkaline Phosphatase 62 U/L (35-105) 02/11/23 09:25 Troponin T Baseline 6 ng/L (0-10) 02/11/23 09:25 Troponin T 120 Minute 6.00 ng/L (0-10) 02/11/23 11:47 Delta Troponin T 0 ABS# (0-10) 02/11/23 11:47 Total Protein 7.2 g/dL (6.6-8.7) 02/11/23 09:25 Albumin 4.9 g/dL (3.5-5.2) 02/11/23 09:25 Globulin 2.3 g/dL (1.3-4.6) 02/11/23 09:25 Discharge Plan Discharge Patient Disposition: Home Clinical Impression: Hypertension Qualifiers: Hypertension type: unspecified Qualified Code(s): I10 - Essential (primary) hypertension Condition: Stable Prescriptions: No Action Toprol XL 25 mg tablet extended release 24 hr 12.5 mg PO DAILY losartan 25 mg tablet 25 mg PO BID Qty: 60 3RF escitalopram oxalate 10 mg tablet 10 mg PO DAILY Qty: 30 1RF hydrocodone-acetaminophen 5-325 mg tablet 1 tab PO Q6H PRN (Reason: pain) Qty: 14 0RF Aspir-81 81 mg Tablet,Delayed Release (Dr/Ec) 81 mg PO QAM Zinc Magnesium Aspartate 10-150-3.83 mg Capsule 1 cap PO QAM Discharge Orders: Discharge ED (Routine); Ordered 02/11/23 Ordered By: Nancy Carrillo Referrals: Samson Rios DO [Primary Care Provider] - Activity Restrictions/Additional Instructions: As discussed I would like you to follow-up with your primary care provider by the end of the week for re-evaluation. Continue to keep a blood pressure log to discuss with them. If blood pressure readings are continually high (>160 systolic or >90 diastolic) then you can take an additional 12.5mg of your metoprolol. Coding Level of Care Code ED Maintenance Service Supervisor for Karolina Thomas
--- NOTE | 2023-02-11 09:17 | ECG_ITS ---
[facility] Test Date: 2023-02-11 Pat Name: Inés Cruz Department: Room: Gender: Female Bookkeeping Assistant: : 1980 Requested By: Nancy Carrillo Order Number: [id number] Summer MD: Glenna Maya M.D. Measurements Intervals [place] Rate: 74 P: 52 IN: 162 QRS: 45 QRSD: 86 T: 62 QT: 382 QTc: 426 Interpretive Statements SINUS RHYTHM Compared to ECG 05/22/2022 08:08:05 No significant changes Electronically Signed On 02-11-2023 16:50:58 CDT by Glenna Maya M.D. [id number]
[2023-02-11] MEDS: hyDRALAzine 20 mg/mL INJ 1 mL 10 MG IVP (09:26)
[2023-02-11 09:32] LABS: Basophils % 0.4 %; Eosinophils # 0.1 10^3/uL (0.0-0.8); Eosinophils % 1.6 %; Hematocrit 46.5 % (37.0-47.0); Hemoglobin 15.6 g/dL (11.5-15.3); Lymphocytes # 2.1 10^3/uL (0.8-4.8); Lymphocytes % 25.6 %; Mean Corpuscular HGB Conc 33.5 g/dL (30.0-36.0); Mean Corpuscular Hemoglobin 32.1 pg (28.0-34.0); Mean Corpuscular Volume 95.7 fl (81-99); Monocytes # 0.4 10^3/uL (0.2-0.9); Neutrophils # 5.52 10^3/uL (1.8-7.7); Neutrophils % 66.9 %; Nucleated Red Blood Cells % 0 %; Platelet Count 316 10^3/cmm (130-400); Red Blood Count 4.86 10^6/uL (4.1-5.3); Red Cell Distribution Width 12.9 % (12.1-15.1); White Blood Count 8.2 10^3/uL (4.0-10.0)
[2023-02-11 09:51] LABS: Troponin(5th) Baseline 6 ng/L (0-10)
[2023-02-11 09:52] LABS: Alanine Aminotransferase 15 U/L (0-33); Albumin Level 4.9 g/dL (3.5-5.2); Alkaline Phosphatase 62 U/L (35-105); Aspartate Amino Transferase 20 U/L (0-32); Blood Urea Nitrogen 6 mg/dL (6-20); Calcium 9.5 mg/dL (8.5-10.5); Carbon Dioxide 21 mmol/L (22-29); Chloride 106 mmol/L (98-107); Globulin 2.3 g/dL (1.3-4.6); Glomerular Filtration Rate 109.6 mL/min (90-130); Glucose 84 mg/dL (65-115); Osmolality Calculated 293 mOsm/kg (285-295); Sodium 143 mmol/L (136-145); Total Bilirubin 0.3 mg/dL (0.15-1.2); Total Protein 7.2 g/dL (6.6-8.7)
[2023-02-11 09:55] LABS: Anion Gap 19.4 (5-19); Potassium 3.4 mmol/L (3.5-5.1)
[2023-02-11 10:27] VITALS: BP 158/92; PULSE 84; RESP 16; O2SAT 99
[2023-02-11] MEDS: metoclopramide 5 mg/mL SDV 2 mL 10 MG IVP (10:28)
[2023-02-11 10:33] VITALS: BP 153/94; PULSE 84; RESP 16; O2SAT 100
[2023-02-11 11:34] VITALS: BP 137/79; PULSE 69; RESP 18; O2SAT 98
[2023-02-11 12:14] LABS: Troponin 5 2HR Delta 0 ABS# (0-10)
[2023-02-11 12:16] VITALS: BP 122/62; PULSE 79; O2SAT 98
== END 2023-02-11 12:27 | disposition home or self-care (01) ==
PROVIDERS: Emergency Provider Physician Assistant; PCP Family Medicine
DX: I10 Essential (primary) hypertension (principal)
CPT/HCPCS: 70450; 71045; 80053; 84484; 85025; 93005; 96374; 96375; 99285; J0360; J2765

== ENCOUNTER 2023-03-04 06:07 | Outpatient (CLI) | payer BC, MEDICAID, SELFPAY ==
--- NOTE | 2023-03-04 06:30 | USCV_ITS ---
Inés Cruz Age: 42 Gender: F : 1980 Exam Date: 03/04/2023 06:19 Ordering Phys: Hayder Rosales NP Technologist: CT Exam Location: [facility] [place] Indication: htn Aortic Velocity @ SMA (cm/s) 91.7 RIGHT KIDNEY LEFT KIDNEY Velocity (cm/s) Velocity (cm/s) Sys/Veloz Sys/Veloz Resistive Index Resistive Index 66.8 / 27.9 0.58 Proximal Renal Artery 62.0 / 29.6 0.52 103.5 / 54.7 0.47 Mid Renal Artery 85.7 / 35.6 0.58 97.7 / 46.9 0.52 Distal Renal Artery 45.8 / 19.7 0.57 90.1 / 38.8 0.57 Hilar 51.2 / 20.6 0.60 74.8 / 31.9 0.57 Upper Pole 47.1 / 19.8 0.58 31.3 / 18.1 0.42 Mid Pole 23.9 / 12.0 0.50 38.9 / 19.4 0.50 Lower Pole 30.8 / 13.8 0.55 1.10 Renal Aortic Ratio 0.93 Accleration Index (cm/sec2) 693.00 Hilar 873.00 550.00 Upper Pole 318.00 172.00 Mid Pole 183.00 299.00 Lower Pole 254.00 114.5 Kidney Length (mm) 110.9 FINDINGS No comparison. Normal kidneys by ultrasound. There is no evidence of hemodynamically significant right renal artery stenosis. There is no evidence of hemodynamically significant left renal artery stenosis. CONCLUSIONS No sonographic evidence of renal aortic stenosis. Dr. Lily Hogan DO (Electronically Signed) Final Date: 04 March 2023 07:28 S
== END 2023-03-04 06:08 | disposition home or self-care (01) ==
PROVIDERS: PCP Family Medicine; Visit Provider Clinical Nurse Specialist Adult Health
DX: I10 Essential (primary) hypertension (principal)
CPT/HCPCS: 93975

== ENCOUNTER → 2023-05-07 08:59 | Outpatient (BNVA) | payer BC, MEDICAID, SELFPAY | PROVIDERS: PCP Clinical Nurse Specialist Adult Health; Visit Provider Clinical Nurse Specialist Adult Health | DX: B34.9 Viral infection, unspecified (principal) | CPT/HCPCS: 87400; 87426 ==

== ENCOUNTER → 2023-09-30 08:38 | Outpatient (BNVA) | payer MEDICAID, SELFPAY | PROVIDERS: PCP Clinical Nurse Specialist Adult Health; Visit Provider Clinical Nurse Specialist Adult Health | DX: R30.0 Dysuria (principal); I10 Essential (primary) hypertension; N39.0 Urinary tract infection, site not specified | CPT/HCPCS: 81000; 87077; 87086; 87184 ==

== ENCOUNTER 2023-10-02 14:51 | Outpatient (CLI) | payer MEDICAID, SELFPAY ==
--- NOTE | 2023-10-02 15:00 | CT_ITS ---
WS: [id number] CT ABDOMEN AND PELVIS NONCONTRAST HISTORY: to rule out retained renal calculi TECHNIQUE: Imaging performed through the abdomen and pelvis. Coronal and sagittal reformats are submi tted. All CT scans at [facility] use at least one of these dose optimization techniques: auto mated exposure control; mA and/or kV adjustment per patient size (includes targeted exams where dose is matched to clinical indication); or iterative reconstruction. DLP: 267.68 mGy.cm COMPARISON: 09/12/2022, 04/27/2019 Lower thorax: Lung bases are clear. Visualized heart is normal. No hiatal hernia. Liver: Liver is mildly enlarged. There is mild heterogeneity within the liver this is probably due to areas of hepatic steatosis and sparing. No bile duct dilatation. Gallbladder: Prior cholecystectomy. Pancreas: Limited visualization without IV and oral contrast. Spleen: Normal. Adrenal glands: Mild bilateral adrenal thickening. Probably representing small adenomas. Right kidney: Normal size kidney. 6 x 8 mm calcification in the central renal pelvis. No calyceal dil atation. The ureter is not dilated. No additional renal calcifications. This calcification is new in this position since the prior study from 09/12/2022. Left kidney: Normal size kidney with no mass or hydronephrosis. Aorta: Normal abdominal aorta, no aneurysm or atherosclerosis. No free fluid, intraperitoneal air or significant lymphadenopathy. GI tract: Stomach is distended with food products. No small bowel obstruction. Prior appendectomy. Garcia rgical sutures are noted within the RIGHT colon. There is marked fecal retention and constipation. Nu merous diverticula in the sigmoid colon. No acute diverticulitis. Abdominal wall: Small umbilical hernia contains fat only. Pelvis: No free fluid in the pelvis. There is a calcific density in the RIGHT adnexa which I believe is a phlebolith, stable since 04/27/2019. No abnormality within the urinary bladder. Osseous structures: Unremarkable. IMPRESSION: 1. RIGHT renal calcification measuring 6 x 8 mm in the central pelvis without obstruction. This is a new calcification at this site since 09/12/2022. 2. Prior cholecystectomy and appendectomy. 3. Marked constipation. 4. No ureteral calcifications.
== END 2023-10-02 14:52 | disposition home or self-care (01) ==
PROVIDERS: PCP Clinical Nurse Specialist Adult Health; Visit Provider Clinical Nurse Specialist Adult Health
DX: N20.0 Calculus of kidney (principal); K59.00 Constipation, unspecified; Z90.49 Acquired absence of other specified parts of digestive tract; Z90.89 Acquired absence of other organs
CPT/HCPCS: 74176; 81000

== ENCOUNTER → 2023-11-20 10:50 | Outpatient (BNVA) | payer SELFPAY | PROVIDERS: PCP Clinical Nurse Specialist Adult Health; Visit Provider Clinical Nurse Specialist Adult Health | DX: R31.9 Hematuria, unspecified (principal); N20.0 Calculus of kidney; N39.0 Urinary tract infection, site not specified | CPT/HCPCS: 81000; 87086 ==